=== PATIENT | male | born 1995 | race Caucasian/White ===

== ENCOUNTER 2024-01-10 22:39 | Emergency (ER) | payer SELFPAY ==
[~2024-01-10] VITALS: Ht 170.2 cm; Wt 90.9 kg
[2024-01-10] MEDS ORDERED: cefTRIAXone 1 G,Lidocaine PF 1% 2.1 ML IM ONE (23:45)
[2024-01-11 00:56] VITALS: BP 145/82; PULSE 83; TEMP 98.5
== END 2024-01-11 00:56 | disposition home or self-care (01) ==
LOC: COL.ER 22:39
DX: Z20.2 Contact with and (suspected) exposure to infections with a predominantly sexual mode of transmission (principal); F17.210 Nicotine dependence, cigarettes, uncomplicated
CPT/HCPCS: J0696